=== PATIENT | male | born 1985 | race Caucasian/White ===

== ENCOUNTER 2023-12-14 10:12 | Emergency (ER) | payer OTHER, BC ==
[~2023-12-14] VITALS: Ht 175.3 cm; Wt 81.2 kg
[2023-12-14 10:18] VITALS: BP 133/91; PULSE 69; O2SAT 97
[2023-12-14 10:29] VITALS: RESP 16; TEMP 98.7
== END 2023-12-14 10:32 | disposition home or self-care (01) ==
LOC: ER 10:13
DX: M25.571 Pain in right ankle and joints of right foot (principal); V89.2XXA Person injured in unspecified motor-vehicle accident, traffic, initial encounter; Y93.89 Activity, other specified; Y92.89 Other specified places as the place of occurrence of the external cause; Y99.8 Other external cause status
CPT/HCPCS: 99281; 99282